=== PATIENT | female | born 1965 ===

== ENCOUNTER 2022-08-16 19:58 | Outpatient (CLI) | payer MEDICAID | END 2022-08-16 23:59 | disposition short-term general hospital (02) | LOC: EMS 19:58 | DX: S49.92XA Unspecified injury of left shoulder and upper arm, initial encounter (principal); S41.132A Puncture wound without foreign body of left upper arm, initial encounter; W18.09XA Striking against other object with subsequent fall, initial encounter; Y93.01 Activity, walking, marching and hiking; Y92.009 Unspecified place in unspecified non-institutional (private) residence as the place of occurrence of the external cause; F10.90 Alcohol use, unspecified, uncomplicated | CPT/HCPCS: A0425; A0427; A0999 ==